=== PATIENT | male | born 1990 | race African-American/Black ===

== ENCOUNTER 2017-12-22 23:41 | Emergency (ER) | payer OTHER ==
[~2017-12-22] VITALS: Ht 170.2 cm; Wt 83.0 kg
[2017-12-22] MEDS ORDERED: TETRACAINE 0.5% OPHTH SOLUTION 4ML BOTTLE. ONE (23:46)
[2017-12-22] MEDS ORDERED: FLUORESCEIN 1MG EYE STRIP. ONE (23:46)
--- NOTE | 2017-12-22 23:48 | ED.ADGEN ---
Adult General Chief Complaint Chief Complaint ".. I was playing basket ball and things got competitive... And tangled up and I got a finger in the Lt. eye.. that was about 1930...it just keeps burning... 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 Pt. currently has extreme photophobia with some consensual photophobia. Patient currently unable to open left eye because of spasms. Patient normally healthy. Does not remember his last tetanus shot. No recent overseas travel or specific ill contacts. No history immunosuppression. After tetracaine to left eye he is able to complete visual acuity of 20/20. Patient also noted to have an abrasion to the lower half of his cornea. And some scleral abrasion. Limited exam but fundus appears to be benign. Review of Systems Review of Systems Constitutional: Denies fever or chills [] Eyes: Denies change in visual acuity, redness, or eye pain []except findings of left eye injury HENT: Denies nasal congestion or sore throat [] Respiratory: Denies cough or shortness of breath [] Cardiovascular: No additional information not addressed in HPI [] GI: Denies abdominal pain, nausea, vomiting, bloody stools or diarrhea [] : Denies dysuria or hematuria [] Musculoskeletal: Denies back pain or joint pain [] Integument: Denies rash or skin lesions [] Neurologic: Denies headache, focal weakness or sensory changes [] Endocrine: Denies polyuria or polydipsia [] All other systems were reviewed and found to be within normal limits, except as documented in this note. Family History Family History Noncontributory Current Medications Current Medications Current Medications Medications (Trade) Dose Ordered Sig/Abida Start Time Stop Time Status Last Admin Dose Admin Cyclopentolate HCl (Cyclogyl) 1 drop STK-MED ONCE 12/22/17 23:58 12/22/17 23:59 DC Erythromycin (Romycin) 0.25 inch 1X ONCE 12/23/17 00:30 12/23/17 00:31 DC 12/23/17 00:51 0.25 INCH Fluorescein Sodium (Ful-Sharda 1mg) 1 strip STK-MED ONCE 12/22/17 23:46 12/22/17 23:48 DC Ketorolac Tromethamine (Toradol Im) 60 mg 1X ONCE 12/23/17 00:30 12/23/17 00:31 DC 12/23/17 00:46 60 MG Ondansetron HCl (Starter Pack - Zofran Odt) 1 startpack STK-MED ONCE 12/23/17 01:27 12/23/17 02:04 DC Oxycodone/ Acetaminophen (Percocet 5/325) 2 tab 1X ONCE 12/23/17 00:30 12/23/17 00:31 DC 12/23/17 00:42 2 TAB Tetanus/ Diphtheria Toxoids Adsorbed (Tenivac Vial) 0.5 ml ONCE ONCE 12/23/17 00:30 12/23/17 00:31 DC 12/23/17 00:30 0.5 ML Tetracaine HCl (Tetracaine) 1 drop 1X ONCE 12/23/17 00:30 12/23/17 00:31 DC 12/23/17 00:05 1 DROP See nursing for home meds Allergies Allergies Allergies Coded Allergies Type Severity Reaction Last Updated Verified No Known Drug Allergies 12/23/17 No Physical Exam Physical Exam Constitutional: Well developed, well nourished, in acute distress, non-toxic appearance. [] HENT: Normocephalic, atraumatic, bilateral external ears normal, oropharynx moist, no oral exudates, nose normal. [] Eyes: PERRLA, EOMI, conjunctiva normal, no discharge. [] Findings as per history of present illness-left corneal and sclera abrasion Neck: Normal range of motion, no tenderness, supple, no stridor. [] Cardiovascular:Heart rate regular rhythm, no murmur [] Lungs & Thorax: Bilateral breath sounds clear to auscultation [] Abdomen: Bowel sounds normal, soft, no tenderness, no masses, no pulsatile masses. [] Skin: Warm, dry, no erythema, no rash. [] Back: No tenderness, no CVA tenderness. [] Extremities: No tenderness, no cyanosis, no clubbing, ROM intact, no edema. [] Neurologic: Alert and oriented X 3, normal motor function, normal sensory function, no focal deficits noted. [] Psychologic: Affect anxious, judgement normal, mood normal. [] Current Patient Data Vital Signs Vital Signs Date Time Temp Pulse Resp B/P (MAP) Pulse Ox O2 Delivery O2 Flow Rate FiO2 12/23/17 01:16 70 18 137/60 (85) 98 Room Air 12/22/17 23:47 98.2 EKG EKG [] Radiology/Procedures Radiology/Procedures [] Course & Med Decision Making Course & Med Decision Making Pertinent Labs and Imaging studies reviewed. (See chart for details). Apply a very small amount of erythromycin ointment 4 times a day left eye. Have reexam in the morning with ophthalmology and your primary care at [facility]. Return if any concerns. Take Tylenol and ibuprofen for pain for marked pain may take Vicoprofen. Return if any concerns. [] Final Impression Final Impression 1. Eye[]- left traumatic iritis 2. Left corneal and sclera abrasion Dragon Disclaimer Dragon Disclaimer This electronic medical record was generated, in whole or in part, using a voice recognition dictation system. JOELLE CAPPS MD Dec 22, 2017 23:47
[2017-12-22] MEDS ORDERED: CYCLOPENTOLATE 1% OPTH SOLUTION 2ML BOTTLE. ONE (23:58)
[2017-12-23] MEDS ORDERED: HYDR-79 PO (00:15)
[2017-12-23] MEDS ORDERED: oxyCODONE/APAP 5/325 1 TAB TABLET PO ONE (00:30)
[2017-12-23] MEDS ORDERED: KETOROLAC 60 MG/2 ML VIAL. IM ONE (00:30)
[2017-12-23] MEDS ORDERED: ERYTHROMYCIN 0.5% OPHTH OINTMENT 1GM TUBE. OS ONE (00:30)
[2017-12-23] MEDS ORDERED: TETANUS AND DIPHTHERIA TOX/PF 0.5 ML VIAL. VAX IM ONE (00:30)
[2017-12-23] MEDS ORDERED: TETRACAINE 0.5% OPHTH SOLUTION 4ML BOTTLE. OU ONE (00:30)
[2017-12-23 01:16] VITALS: BP 137/60
[2017-12-23] MEDS ORDERED: ONDANSETRON 4MG ODT 4TABLET STARTPACK. PO ONE ×2 (01:27→01:30)
== END 2017-12-23 01:38 | disposition home or self-care (01) ==
LOC: ER 23:41 → EDBD 23:41 → ER 12-23 01:38
DX: S05.02XA Injury of conjunctiva and corneal abrasion without foreign body, left eye, initial encounter (principal); H20.9 Unspecified iridocyclitis; W50.0XXA Accidental hit or strike by another person, initial encounter; Y93.67 Activity, basketball; Y92.89 Other specified places as the place of occurrence of the external cause; Y99.8 Other external cause status
CPT/HCPCS: 90471; 90714; 96372; 99284; J1885; Q0162